=== PATIENT | male | born 1960 | race Caucasian/White ===

== ENCOUNTER 2016-02-28 13:37 | Emergency (ER) | payer OTHER ==
[~2016-02-28] VITALS: Ht 172.7 cm; Wt 133.0 kg
[~2016-02-28 13:37] MED LIST: AMLO-110; ESCI1TAB10; LANS30TA3; LISI-725; METO25TA56; effexor; stelazine
[2016-02-28 13:49] VITALS: TEMP 36.5; Ht 172.7 cm; Wt 133.0 kg
[2016-02-28] MEDS ORDERED: ONDANSETRON INJ 2 MG/ML 2 ML VIAL IV STA (14:47)
[2016-02-28] MEDS ORDERED: SODIUM CHLORIDE 0.9% 1000ML 1,000 ML IV STA (14:47)
[2016-02-28] MEDS ORDERED: MoRPHine SULFATE 4 MG/ML 1 ML CARP\\VIAL IV STA ×2 (14:47→18:06)
[2016-02-28] MEDS ORDERED: CLON0.2T PO (15:06)
[2016-02-28] MEDS ORDERED: DIVA500T59 PO (15:06)
[2016-02-28] MEDS ORDERED: AMLO-114 PO (15:06)
[2016-02-28] MEDS ORDERED: DULO60CA44 PO (15:06)
[2016-02-28] MEDS ORDERED: METO50TA16 PO (15:06)
[2016-02-28] MEDS ORDERED: LISI-725 PO (15:06)
[2016-02-28 15:43] VITALS: O2SAT 94
[2016-02-28 15:53] LABS: BASO % 0.5 %; BASO ABS # 0.05 K/uL (0-0.2); COMPLETE YES; EOS % 0.8 %; HEMATOCRIT 43.1 % (42-52); IG% 0.3 %; LYMPH % 21.2 %; LYMPH ABS # 2.17 K/uL (1.2-3.4); MEAN CELL VOLUME 90.5 fL (80-100); MEAN CORPUSCULAR HEMOGLOBIN 31.7 pg (25-34); MEAN PLATELET VOLUME 11.2 fL (7.4-10.4); MONO % 8.2 %; PLATELET COUNT 183 K/uL (130-400); RED BLOOD COUNT 4.76 M/uL (4.7-6.1); WHITE BLOOD COUNT 10.22 K/uL (4.8-10.8)
[2016-02-28 16:10] LABS: ISTAT CREATININE 0.8 mg/dl (0.6-1.3); ISTAT HEMOGLOBIN 14.6 g/dl (14.0-18.0); ISTAT IONIZED CALCIUM 1.04 mmol/l (1.12-1.32)
[2016-02-28 16:15] LABS: URINE APPEARANCE CLEAR (CLEAR); URINE BILIRUBIN NEG (NEG); URINE COLOR YELLOW; URINE NITRITE NEG (NEG); URINE PH 6.5 (4.5-7.5); URINE SPECIFIC GRAVITY 1.007 (1.000-1.030); UROBILINOGEN NEG (NEG)
[2016-02-28 16:17] LABS: MANUAL MICROSCOPIC REQUIRED? NO; REVIEW REQ? NO
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
--- NOTE | 2016-02-28 16:40 | DIAGNOSTIC IMAGING REPORT ---
ABDOMEN AND PELVIS CT WITH IV CONTRAST CT DOSE: 1964.77 mGy.cm HISTORY: Left upper quadrant abdominal pain. TECHNIQUE: Multiaxial CT images of the abdomen and pelvis were performed following the use of intravenous contrast. COMPARISON STUDY: None. FINDINGS: Small focal consolidation within the medial aspect of the right lower lobe at the retrohilar location. Patchy densities at the lung bases favor mild dependent change. No pneumoperitoneum. No pneumatosis. Tiny fat-containing midline ventral hernia. Evidence for prior midline incision. Prior gastric bypass. Cholecystectomy. The liver, spleen, adrenal glands, left kidney, and pancreas are unremarkable. A 9 mm hypodense lesion within the lower pole of the right kidney is too small to characterize. No retroperitoneal or mesenteric lymphadenopathy. Bladder is mildly distended. No bladder wall thickening. No bowel wall thickening or obstruction. Normal appendix. IMPRESSION: 1. No bowel wall thickening or obstruction. 2. Normal appendix. 3. Prior gastric bypass. 4. Cholecystectomy. 5. Mildly distended bladder. 6. Small focal area of consolidation within the medial axis of the right lower lobe. This could represent atelectasis or developing pneumonia. Electronically signed by: Bhavin Mitchell M.D. 02/28/2016 4:38 PM Dictated Date/Time: 02/28/2016 4:31 PM
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
[2016-02-28] MEDS ORDERED: NORCO 5/325MG HOME PACK PO ONE (18:15)
[2016-02-28 18:55] VITALS: BP 145/75; PULSE 80; O2SAT 96
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
== END 2016-02-28 18:56 | disposition home or self-care (01) ==
LOC: EDBD 13:37 → C.EDA 13:40
DX: R10.9 Unspecified abdominal pain (principal); M25.512 Pain in left shoulder; V43.52XA Car driver injured in collision with other type car in traffic accident, initial encounter; F31.9 Bipolar disorder, unspecified; I10 Essential (primary) hypertension; Z79.899 Other long term (current) drug therapy